=== PATIENT | female | born 1980 | race African-American/Black ===

== ENCOUNTER 2017-03-12 08:55 | Emergency (ER) | payer MEDICARE, MEDICAID ==
[2017-03-12] MEDS ORDERED: Dexamethasone 10 MG/ML VIAL ONE (09:25)
== END 2017-03-12 09:54 | disposition home or self-care (01) ==
LOC: ERS 08:55
DX: J06.9 Acute upper respiratory infection, unspecified (principal); E66.9 Obesity, unspecified; K21.9 Gastro-esophageal reflux disease without esophagitis; F41.9 Anxiety disorder, unspecified; F32.9 Major depressive disorder, single episode, unspecified
CPT/HCPCS: 93005; 96372; J1100

== ENCOUNTER 2020-04-11 08:53 | Emergency (ER) | payer MEDICARE, OTHER ==
[2020-04-11 09:21] LABS: #Basophils 0.2 thou/uL (0.0-0.2); #Eosinphils 0.2 thou/uL (0.0-0.7); #Lymphocytes 3.7 thou/uL (1.20-3.40); #Neutrophils 6.4 thou/uL (1.40-6.50); %Basophils 1.6 % (0.0-1.0); %Eosinophils 1.9 % (0.0-10.0); %Monocytes 8.9 % (0.0-10.0); %Neutrophils 55.6 % (42.0-75.0); Hemoglobin 11.6 g/dL (12.0-16.0); Mean Corpuscular Hemoglobin 26.3 pg (27.0-31.0); Mean Corpuscular Volume 81.9 fL (78.0-98.0); Mean Platelet Volume 8.6 fL (7.4-10.4); Platelet Count 336 thou/uL (130-400); Red Blood Cell (RBC) Count 4.43 mill/uL (4.20-5.40); White Blood Cell (WBC) Count 11.4 thou/uL (4.8-10.8)
[2020-04-11] MEDS ORDERED: Mag-Al 1200 mg/1200 mg/30 ML UDCUP ONE (09:34)
[2020-04-11] MEDS ORDERED: Aspirin Chewable 81 MG TAB ONE (09:34)
[2020-04-11] MEDS ORDERED: Lidocaine Viscous Sol 2% 15 ml UD Cup ONE (09:34)
--- NOTE | 2020-04-11 09:41 | RAD ---
Portable chest: HISTORY: Chest pain COMPARISON: 05/13/2016 FINDINGS: Lung collins are clear. Heart and mediastinum appear unremarkable. Vascularity is normal. Visualized osseous structures unremarkable. IMPRESSION: No acute finding
[2020-04-11 09:49] LABS: ALT (SGPT) 14 U/L (8-55); AST (SGOT) 15 U/L (5-34); Albumin 3.9 g/dL (3.5-5.0); Alkaline Phosphatase 74 U/L (40-110); Anion Gap 12 mmol/L (10-20); BUN (Urea Nitrogen) 13 mg/dL (7.0-18.7); Bilirubin, Total Less than 0.2 mg/dL (0.2-1.2); Calc. Creatinine Clearance 0 mL/min (70-130); Calcium 9.2 mg/dL (7.8-10.44); Carbon Dioxide 25 mmol/L (22-29); Chloride 104 mmol/L (98-107); Estimated GFR-MDRD Greater than 90; Globulin 4.1 g/dL (2.4-3.5); Glucose 85 mg/dL (70-105); Lipase 110 U/L (8-78); Potassium 3.4 mmol/L (3.5-5.1); Sodium 138 mmol/L (136-145)
--- NOTE | 2020-04-11 10:57 | ULT ---
US Gallbladder RUQ: 04/11/2020 10:31 AM CLINICAL HISTORY: Abdominal pain. STUDY: Limited right upper quadrant ultrasound of abdomen. COMPARISON: 09/04/2007; CT abdomen/pelvis 01/08/2017 FINDINGS: Liver: Size: Normal. Echogenicity: Hyperechoic consistent with hepatic steatosis. Contour: Smooth. Mass: None. Bile ducts: No intrahepatic or extrahepatic biliary dilatation. Common bile duct measures 5 mm. Gallbladder: Normal. Pancreas: Head and body appear normal; tail obscured by bowel gas. Right kidney: No pelvicalyceal dilatation. Right kidney measuring 12.1 cm in length. IMPRESSION: Fatty liver
[2020-04-11 22:29] LABS: SARS-CoV-2 MS2 Positive; SARS-CoV-2 N Gene Negative; SARS-CoV-2 S Gene Negative; SARS-CoV-2 by NAA Not Detected (NotDetected); SARS-CoV-2 orf1ab Negative
== END 2020-04-11 13:07 | disposition home or self-care (01) ==
LOC: ERS 08:53
DX: R07.9 Chest pain, unspecified (principal); K21.9 Gastro-esophageal reflux disease without esophagitis; E78.00 Pure hypercholesterolemia, unspecified; F41.9 Anxiety disorder, unspecified; F32.9 Major depressive disorder, single episode, unspecified; Z79.899 Other long term (current) drug therapy
CPT/HCPCS: 71045; 76705; 80053; 82550; 83690; 83880; 84484; 85025; 85379; 93005; 99285; U0003; 87635

== ENCOUNTER 2020-08-26 08:12 | Emergency (ER) | payer MEDICARE, MEDICAID ==
[2020-08-26] MEDS ORDERED: predniSONE 20 MG TAB ONE (09:04)
== END 2020-08-26 09:27 | disposition home or self-care (01) ==
LOC: ERS 08:12
DX: R05 Cough (principal); R06.2 Wheezing; Z03.818 Encounter for observation for suspected exposure to other biological agents ruled out; K21.9 Gastro-esophageal reflux disease without esophagitis; E78.00 Pure hypercholesterolemia, unspecified; Z79.899 Other long term (current) drug therapy; Z86.16 Personal history of COVID-19
CPT/HCPCS: 71045; J7512

== ENCOUNTER 2020-09-15 08:43 | Emergency (ER) | payer MEDICARE, MEDICAID ==
[2020-09-15] MEDS ORDERED: Ketorolac Tromethamine 30 MG/ML VIAL ONE (10:46)
== END 2020-09-15 12:10 | disposition home or self-care (01) ==
LOC: ERS 08:43
DX: T85.528A Displacement of other gastrointestinal prosthetic devices, implants and grafts, initial encounter (principal); E78.00 Pure hypercholesterolemia, unspecified; Z79.899 Other long term (current) drug therapy
CPT/HCPCS: 43762; 74018; 96372; J1885

== ENCOUNTER 2021-11-19 12:37 | Outpatient (CLI) | payer MEDICARE, OTHER | END 2021-11-19 12:38 | disposition home or self-care (01) | LOC: CT 12:37 | PROVIDERS: ATTEND Student in an Organized Health Care Education/Training Program | DX: J01.91 Acute recurrent sinusitis, unspecified (principal) ==

== ENCOUNTER 2022-04-11 08:59 | Outpatient (CLI) | payer MEDICARE, OTHER | END 2022-04-11 09:00 | disposition home or self-care (01) | LOC: DTY/OP 08:59 | PROVIDERS: ATTEND Student in an Organized Health Care Education/Training Program | DX: R73.03 Prediabetes (principal); Z68.42 Body mass index [BMI] 45.0-49.9, adult | CPT/HCPCS: 97802 ==

== ENCOUNTER 2022-05-23 10:58 | Outpatient (CLI) | payer MEDICARE, OTHER | END 2022-05-23 10:59 | disposition home or self-care (01) | LOC: BICMAMMO 10:58 | PROVIDERS: ATTEND Student in an Organized Health Care Education/Training Program | DX: Z12.31 Encounter for screening mammogram for malignant neoplasm of breast (principal); Z80.3 Family history of malignant neoplasm of breast | CPT/HCPCS: 77063; 77067 ==

== ENCOUNTER 2022-08-19 13:30 | Day surgery (SDC) | payer MEDICARE, MEDICAID ==
[2022-08-15 12:04] VITALS: BMI 46.0
[2022-08-19] MEDS ORDERED: FENTANYL 50 MCG/ML 1 ML VIAL ONE ×2 (14:51→16:14)
[2022-08-19] MEDS ORDERED: Neomycin-Polymyxin 1 ML AMP ONE (14:54)
[2022-08-19] MEDS ORDERED: Bacitracin Zinc Ointment 30 gm TUBE ONE (14:54)
[2022-08-19] MEDS ORDERED: Betamet Acet/Betamet Na Ph 30 MG/5 ML VIAL ONE (14:54)
[2022-08-19] MEDS ORDERED: Bupivacaine PF 0.5% 30 ML VIAL ONE (14:54)
[2022-08-19] MEDS ORDERED: Vancomycin 1 GM/200 ML (FROZEN) BAG ONE (14:59)
[2022-08-19] MEDS ORDERED: Ondansetron PF 4 MG/2 ML Vial ONE (15:16)
[2022-08-19] MEDS ORDERED: Ketorolac Tromethamine 30 MG/ML VIAL ONE ×2 (15:16→16:29)
[2022-08-19] MEDS ORDERED: PROPOFOL 200 MG/20 ML VIAL ONE (15:16)
[2022-08-19] MEDS ORDERED: HYDROcodone/Acetaminophen 5/325 mg Tablet ONE (17:31)
== END 2022-08-19 18:07 | disposition home or self-care (01) ==
LOC: SDC 13:30
PROVIDERS: ATTEND Orthopaedic Surgery Hand Surgery
PROC: 0R9N0ZZ Drainage of Right Wrist Joint, Open Approach (ICD-10-PCS; principal; 2022-08-19)
PROC: 03LB0ZZ Occlusion of Right Radial Artery, Open Approach (ICD-10-PCS; 2022-08-19)
DX: M67.431 Ganglion, right wrist (principal); K21.9 Gastro-esophageal reflux disease without esophagitis; Z79.2 Long term (current) use of antibiotics; Z79.899 Other long term (current) drug therapy; Z88.2 Allergy status to sulfonamides; Z88.1 Allergy status to other antibiotic agents
CPT/HCPCS: 25111; 37618; C1713; J3010; J3370; 88304; J0702; J1885; J2405; J2704; S0020

== ENCOUNTER 2022-09-30 11:41 | Inpatient (IN) | payer MEDICARE, MEDICAID ==
[~2022-09-30 11:41] MED LIST: Iopamidol 370 76% 100 ML VIAL ONE
[2022-09-30] MEDS ORDERED: Piperacillin/Tazobactam 4.5 GM VIAL ONE (12:30)
[2022-09-30] MEDS ORDERED: VANCOMYCIN 2 GRAM/500 ML BAG 2 GM in Premix Bag 1 BAG IVPB SCH (13:00)
[2022-09-30 13:10] LABS: BHCG - Serum Negative (NEGATIVE); Pregs Control Background? CLEAR/WHITE (CLR/WHITE); Pregs Control Bar Appear? YES (CONTROL BAR)
[2022-09-30] MEDS ORDERED: Ketorolac Tromethamine 30 MG/ML VIAL ONE (13:17)
[2022-09-30 13:19] LABS: #Basophils 0.1 thou/uL (0.0-0.2); #Monocytes 1.2 thou/uL (0.11-0.59)
[2022-09-30 13:20] LABS: #Neutrophils 12.6 thou/uL (1.40-6.50); %Basophils 0.5 % (0.0-1.0); %Eosinophils 0.2 % (0.0-10.0); %Lymphocytes 16.4 % (21.0-51.0); %Monocytes 7.1 % (0.0-10.0); %Neutrophils 75.2 % (42.0-75.0); Hemoglobin 10.5 g/dL (12.0-16.0); Mean Corpuscular HGB CONC 31.3 g/dL (32.0-36.0); Mean Corpuscular Volume 76.9 fl (78.0-98.0); Mean Platelet Volume 10.4 fL (7.4-10.4); Platelet Count 410 10x3/uL (130-400); RBC Distribution Width 17.2 % (11.5-14.5); Red Blood Cell (RBC) Count 4.37 mill/uL (4.20-5.40); White Blood Cell (WBC) Count 16.7 10x3/uL (4.8-10.8)
[2022-09-30 13:21] LABS: Bilirubin Negative (Negative); Blood, Urine Negative (Negative); Clarity Clear (Clear); Glucose, Urine (Dipstick) Normal (Negative); Ketone, Urine Negative (Negative); Leukocyte Negative Leu/uL (Negative); Nitrite Negative (Negative); Protein, Urine (Dipstick) 20 mg/dL (Neg-Trace); Specific Gravity, Urine 1.027 (1.002-1.036); Urobilinogen 3 mg/dL (Less than 2)
[2022-09-30 13:44] LABS: SARS-CoV-2 NAA Rapid Test Not Detected (NotDetected)
[2022-09-30 14:17] LABS: ALT (SGPT) 13 U/L (8-55); AST (SGOT) 12 U/L (5-34); Albumin 4.1 g/dL (3.5-5.0); Alkaline Phosphatase 86 U/L (40-110); Anion Gap 15 mmol/L (10-20); BUN (Urea Nitrogen) 7 mg/dL (7.0-18.7); Bilirubin, Total 0.5 mg/dL (0.2-1.2); Calc. Creatinine Clearance 0 mL/min (70-130); Calcium 9.2 mg/dL (7.8-10.44); Carbon Dioxide 21 mmol/L (22-29); Chloride 102 mmol/L (98-107); Estimated GFR 90; Globulin 4.4 g/dL (2.4-3.5); Glucose 96 mg/dL (70-105); Potassium 3.7 mmol/L (3.5-5.1); Protein, Total 8.5 g/dL (6.0-8.3); Sodium 134 mmol/L (136-145)
[2022-09-30] MEDS ORDERED: Acetaminophen 325 MG TAB PO PRN (15:57)
[2022-09-30] MEDS ORDERED: Losartan 25 MG TAB PO SCH ×2 (15:59→18:30)
[2022-09-30] MEDS ORDERED: hydrOXYzine 25 MG TAB PO PRN (16:23)
[2022-09-30 16:57] LABS: Iron 21 ug/dL (50-170); Iron Binding Capacity, Total 350 mcg/dL (265-497)
[2022-09-30 17:08] LABS: Hemoglobin A1c 5.4 % (4.0-6.0)
[2022-09-30 18:21] VITALS: BMI 48.6
[2022-09-30] MEDS ORDERED: Ferrous Sulfate 325 MG TAB PO SCH ×2 (20:15→21:00)
[2022-09-30] MEDS ORDERED: busPIRone HCl 10 MG TAB PO SCH (21:00)
[2022-09-30] MEDS ORDERED: Rosuvastatin 20 MG TAB PO SCH (21:00)
[2022-09-30] MEDS: Rosuvastatin 20 MG TAB PO SCH (21:01)
[2022-09-30] MEDS: busPIRone HCl 10 MG TAB PO SCH (21:01)
[2022-09-30] MEDS ORDERED: VANCOMYCIN 1.25 GM/250 ML BAG 1.25 GM in Premix Bag 1 BAG IVPB SCH (23:59)
[2022-10-01] MEDS: VANCOMYCIN 1.25 GM/250 ML BAG 1.25 GM in Premix Bag 1 BAG IVPB SCH ×3 (00:03→17:38)
[2022-10-01] MEDS: hydrOXYzine 25 MG TAB PO PRN (00:08)
[2022-10-01] MEDS: Acetaminophen 325 MG TAB PO PRN ×2 (00:08→08:46)
[2022-10-01] MEDS ORDERED: VANCOMYCIN HCL IVPB SCH (02:00)
[2022-10-01] MEDS ORDERED: SODIUM CHLORIDE 0.9% IVPB SCH (02:00)
[2022-10-01 06:00] LABS: #Basophils 0.1 thou/uL (0.0-0.2); #Eosinphils 0.3 thou/uL (0.0-0.7); #Monocytes 1.5 thou/uL (0.11-0.59); #Neutrophils 10.6 thou/uL (1.40-6.50); %Basophils 0.8 % (0.0-1.0); %Eosinophils 1.8 % (0.0-10.0); %Monocytes 9.7 % (0.0-10.0); %Neutrophils 68.3 % (42.0-75.0); Hemoglobin 9.5 g/dL (12.0-16.0); Mean Corpuscular HGB CONC 30.9 g/dL (32.0-36.0); Mean Corpuscular Hemoglobin 24.1 pg (27.0-31.0); Mean Corpuscular Volume 77.9 fl (78.0-98.0); Platelet Count 356 10x3/uL (130-400); RBC Distribution Width 17.3 % (11.5-14.5); Red Blood Cell (RBC) Count 3.94 mill/uL (4.20-5.40); White Blood Cell (WBC) Count 15.6 10x3/uL (4.8-10.8)
[2022-10-01 06:16] LABS: Anion Gap 11 mmol/L (10-20); BUN (Urea Nitrogen) 9 mg/dL (7.0-18.7); Calc. Creatinine Clearance 196 mL/min (70-130); Calcium 8.5 mg/dL (7.8-10.44); Carbon Dioxide 24 mmol/L (22-29); Chloride 105 mmol/L (98-107); Estimated GFR 95; Glucose 97 mg/dL (70-105); Potassium 4.1 mmol/L (3.5-5.1); Sodium 136 mmol/L (136-145)
[2022-10-01] MEDS ORDERED: Ferrous Sulfate 325 MG TAB PO SCH (08:00)
[2022-10-01] MEDS ORDERED: Ibuprofen 100 MG/5 ML UDCUP PO PRN (08:09)
[2022-10-01] MEDS ORDERED: Ibuprofen 200 MG TAB PO PRN (08:26)
[2022-10-01] MEDS: Loratadine 10 MG TAB PO SCH (08:47)
[2022-10-01] MEDS: busPIRone HCl 10 MG TAB PO SCH ×2 (08:47→21:44)
[2022-10-01] MEDS: Citalopram 20 MG TAB PO SCH (08:48)
[2022-10-01] MEDS ORDERED: Loratadine 10 MG TAB PO SCH (09:00)
[2022-10-01] MEDS ORDERED: busPIRone HCl 10 MG TAB PO SCH (09:00)
[2022-10-01] MEDS ORDERED: Citalopram 20 MG TAB PO SCH (09:00)
[2022-10-01] MEDS ORDERED: Ketorolac Tromethamine 30 MG/ML VIAL IVP SCH ×2 (10:30→18:15)
[2022-10-01 17:01] LABS: Vancomycin, Trough 12.2 ug/mL
[2022-10-01] MEDS ORDERED: Losartan 25 MG TAB PO SCH (21:00)
[2022-10-01] MEDS: Rosuvastatin 20 MG TAB PO SCH (21:44)
[2022-10-02] MEDS: Ketorolac Tromethamine 30 MG/ML VIAL IVP PRN ×3 (00:15→16:16)
[2022-10-02] MEDS: Acetaminophen 325 MG TAB PO PRN ×2 (00:15→08:49)
[2022-10-02] MEDS: hydrOXYzine 25 MG TAB PO PRN (00:15)
[2022-10-02] MEDS: VANCOMYCIN 1.25 GM/250 ML BAG 1.25 GM in Premix Bag 1 BAG IVPB SCH ×3 (00:16→16:10)
[2022-10-02 06:29] LABS: #Basophils 0.1 thou/uL (0.0-0.2); #Eosinphils 0.5 thou/uL (0.0-0.7); #Monocytes 0.8 thou/uL (0.11-0.59); %Basophils 0.9 % (0.0-1.0); %Eosinophils 4.3 % (0.0-10.0); %Lymphocytes 17.9 % (21.0-51.0); %Monocytes 6.9 % (0.0-10.0); %Neutrophils 69.5 % (42.0-75.0); Hemoglobin 9.6 g/dL (12.0-16.0); Mean Corpuscular HGB CONC 29.9 g/dL (32.0-36.0); Mean Corpuscular Hemoglobin 23.8 pg (27.0-31.0); Mean Corpuscular Volume 79.7 fl (78.0-98.0); Mean Platelet Volume 10.6 fL (7.4-10.4); Platelet Count 355 10x3/uL (130-400); RBC Distribution Width 17.9 % (11.5-14.5); Red Blood Cell (RBC) Count 4.03 mill/uL (4.20-5.40); White Blood Cell (WBC) Count 11.5 10x3/uL (4.8-10.8)
[2022-10-02 06:51] LABS: Anion Gap 12 mmol/L (10-20); BUN (Urea Nitrogen) 8 mg/dL (7.0-18.7); Calc. Creatinine Clearance 210 mL/min (70-130); Calcium 8.7 mg/dL (7.8-10.44); Carbon Dioxide 21 mmol/L (22-29); Chloride 107 mmol/L (98-107); Estimated GFR 102; Glucose 92 mg/dL (70-105); Potassium 3.9 mmol/L (3.5-5.1); Sodium 136 mmol/L (136-145)
[2022-10-02] MEDS: busPIRone HCl 10 MG TAB PO SCH (08:35)
[2022-10-02] MEDS: Citalopram 20 MG TAB PO SCH (08:36)
[2022-10-02] MEDS: Loratadine 10 MG TAB PO SCH (08:36)
[2022-10-02 15:30] LABS: Vancomycin, Trough 15.4 ug/mL
[2022-10-02 15:37] VITALS: BP 145/86; TEMP 98.4
== END 2022-10-02 17:58 | disposition home or self-care (01) | DRG 872 ==
LOC: ERS 11:41 → T4-A 15:12
PROVIDERS: ADMIT Emergency Medicine; ATTEND Emergency Medicine
DX: A41.9 Sepsis, unspecified organism (principal); L03.221 Cellulitis of neck; Z68.42 Body mass index [BMI] 45.0-49.9, adult; Z20.822 Contact with and (suspected) exposure to COVID-19; F41.1 Generalized anxiety disorder; F32.A Depression, unspecified; F32.9 Major depressive disorder, single episode, unspecified; D50.9 Iron deficiency anemia, unspecified; E66.9 Obesity, unspecified; I10 Essential (primary) hypertension; L83 Acanthosis nigricans; E78.5 Hyperlipidemia, unspecified; J06.9 Acute upper respiratory infection, unspecified; Z88.2 Allergy status to sulfonamides; Z88.8 Allergy status to other drugs, medicaments and biological substances; Z88.1 Allergy status to other antibiotic agents; Z91.041 Radiographic dye allergy status; Z79.899 Other long term (current) drug therapy; Z98.51 Tubal ligation status; Z80.3 Family history of malignant neoplasm of breast; Z82.5 Family history of asthma and other chronic lower respiratory diseases; Z81.8 Family history of other mental and behavioral disorders
CPT/HCPCS: 36415; 70491; 71045; 80048; 80053; 80202; 81003; 82728; 83036; 83540; 83550; 83605; 84145; 84703; 85025; 87040; 87086; J1650; J1885; J2543; J3370; Q9967

== ENCOUNTER 2023-04-10 10:59 | Outpatient (CLI) | payer MEDICARE, OTHER, MEDICAID | END 2023-04-10 11:00 | disposition home or self-care (01) | LOC: BICRAD 10:59 | PROVIDERS: ATTEND Student in an Organized Health Care Education/Training Program | DX: R04.2 Hemoptysis (principal) | CPT/HCPCS: 71046 ==

== ENCOUNTER 2023-06-13 08:41 | Outpatient (CLI) | payer MEDICARE, MEDICAID | END 2023-06-13 08:42 | disposition home or self-care (01) | LOC: BICMAMMO 08:41 | PROVIDERS: ATTEND Student in an Organized Health Care Education/Training Program | DX: R92.1 Mammographic calcification found on diagnostic imaging of breast (principal) | CPT/HCPCS: 77065; G0279 ==

== ENCOUNTER 2023-11-17 05:40 | Day surgery (SDC) | payer MEDICARE, MEDICAID ==
[2023-11-14 08:42] VITALS: BMI 47.7
[2023-11-17] MEDS ORDERED: PROPOFOL 40 ML ONE (07:07)
[2023-11-17] MEDS ORDERED: Midazolam HCl 2 mg/2 ml Vial ONE (07:07)
[2023-11-17] MEDS ORDERED: Lidocaine 1% PF 5 ML VIAL ONE (07:57)
[2023-11-17] MEDS ORDERED: PROPOFOL 20 ML ONE (08:16)
== END 2023-11-17 09:45 | disposition home or self-care (01) ==
LOC: SDC 05:40
PROVIDERS: ATTEND Internal Medicine Gastroenterology
PROC: 0D758ZZ Dilation of Esophagus, Via Natural or Artificial Opening Endoscopic (ICD-10-PCS; principal; 2023-11-17)
DX: D50.9 Iron deficiency anemia, unspecified (principal); K21.9 Gastro-esophageal reflux disease without esophagitis; R13.10 Dysphagia, unspecified; F41.9 Anxiety disorder, unspecified; F32.A Depression, unspecified; E78.00 Pure hypercholesterolemia, unspecified; Z98.51 Tubal ligation status; Z79.899 Other long term (current) drug therapy; Z88.1 Allergy status to other antibiotic agents; Z88.2 Allergy status to sulfonamides; Z91.041 Radiographic dye allergy status
CPT/HCPCS: 43248; J2250; J2704

== ENCOUNTER 2025-05-04 14:39 | Emergency (ER) | payer OTHER | END 2025-05-04 16:45 | disposition home or self-care (01) | LOC: ERS 14:39 | DX: S16.1XXA Strain of muscle, fascia and tendon at neck level, initial encounter (principal); S46.811A Strain of other muscles, fascia and tendons at shoulder and upper arm level, right arm, initial encounter; I10 Essential (primary) hypertension; E78.00 Pure hypercholesterolemia, unspecified; Z79.899 Other long term (current) drug therapy; V49.49XA Driver injured in collision with other motor vehicles in traffic accident, initial encounter; Y92.410 Unspecified street and highway as the place of occurrence of the external cause | CPT/HCPCS: 71045 ==